=== PATIENT | female | born 1975 | race Caucasian/White ===

== ENCOUNTER → 2023-10-15 16:10 | Outpatient (REF) | payer OTHER, SELFPAY | LOC: RAD 16:10 | PROVIDERS: ATTENDING PHYSICIAN Nurse Practitioner Family | DX: R05.1 Acute cough (principal) | CPT/HCPCS: 71046 ==

== ENCOUNTER 2023-12-22 16:16 | Emergency (ER) | payer OTHER, SELFPAY ==
[2023-12-22 16:33] VITALS: BP 143/73
--- NOTE | 2023-12-22 17:08 | ED.SKININJ ---
HPI-Injury
<Brianna Wong PA-C - Last Filed: 12/23/23 00:22>
General
Chief Complaint: Bite
Source: patient
Exam Limitations: none
Time Seen by Provider: 12/22/23 16:42
Nursing documentation reviewed up to this point in time: agreed with
History of Present Illness-Injury
Is this injury a work related problem?: No
Is pt an associate of [facility]?: No
Initial Injury comments:
Patient is a 48-year-old female presenting for evaluation of right to left third digit. Patient states she was pulling down IV in her yard on Friday evening around 5 PM when she reached at the PIP and felt a sharp pain in her left middle finger.
Patient states that she removed her hand but did not notice any bug, spider, insect, snake, bird/bat. Patient states that over the course of the weekend her finger became bruised and she had some pain. Yesterday when she woke up states that
bruising, swelling and pain in her left finger had greatly improved. Given the unknown nature of what bit her she did follow-up with her primary care today. Her primary care sent her to the emergency department uncertainty of whether or not it may
have been a bat that bit her.
Patient does state that they do have baths in her yard frequently and states that she sees a night.
Patient denies any associated fever, chills.
Review of Systems
<Brianna Wong PA-C - Last Filed: 12/23/23 00:22>
Review of Systems
Allergies reviewed?: Yes
All Other Systems: ROS reviewed and negative except as documented in HPI and ROS
Phy Exam
<Brianna Wong PA-C - Last Filed: 12/23/23 00:22>
Physical Exam
Physical Exam:
Vitals: Patient's vital signs are stable. Afebrile
General: Patient is well appearing, no acute distress
Skin: Well-healing pinpoint shaylee on the left third digit at lateral aspect near PIP joint. No surrounding erythema, edema, ecchymoses. No red streaking.
Head: Normocephalic, atraumatic
Eyes: Sclera nonicteric. EOMs intact. No nystagmus.
Throat: Protecting airway
Neck: Normal ROM, no cervical spine tenderness, no meningismus
Cardiac: Regular rate and rhythm, no murmurs.
Pulm: Normal respiratory effort, no wheezes, rales, rhonchi heard on exam.
Abdomen: No abdominal tenderness.
Extremities: Pinpoint puncture wount to left third digit as described above. No bony tenderness to left hand. Full range of motion in left third digit without pain. Left third digit neurovascularly intact. Great sensation and capillary refill.
Neuro: AAOx3. CN II-XII intact. No focal neurologic deficits.
Psychiatric: Normal affect.
Course
<Brianna Wong PA-C - Last Filed: 12/23/23 00:22>
Orders/Labs/Results
Orders:
Orders
12/22/23 17:40
Rabies Immune Globulin/Pf [HyperRAB] 1,348 unit IM NOW STA
12/22/23 17:45
Rabies Vaccine (Pcec)/Pf [Rabavert Rabies Vacc W-Diluent] 2.5 unit IM .ONCE ONE
Vital Signs
Initial and Last Documented VS:
Initial Vital Signs
Temp Pulse Resp BP Pulse Ox
98.0 F 80 16 143/73 98
12/22/23 16:33 12/22/23 16:33 12/22/23 16:33 12/22/23 16:33 12/22/23 16:33
Last Documented Vital Signs
Temp Pulse Resp BP Pulse Ox
98.0 F 80 16 143/73 98
12/22/23 16:33 12/22/23 16:33 12/22/23 16:33 12/22/23 16:33 12/22/23 16:33
<Sameer Hearn DO - Last Filed: 12/22/23 20:01>
Orders/Labs/Results
Orders:
Orders
12/22/23 17:40
Rabies Immune Globulin/Pf [HyperRAB] 1,348 unit IM NOW STA
12/22/23 17:45
Rabies Vaccine (Pcec)/Pf [Rabavert Rabies Vacc W-Diluent] 2.5 unit IM .ONCE ONE
Vital Signs
Initial and Last Documented VS:
Initial Vital Signs
Temp Pulse Resp BP Pulse Ox
98.0 F 80 16 143/73 98
12/22/23 16:33 12/22/23 16:33 12/22/23 16:33 12/22/23 16:33 12/22/23 16:33
Last Documented Vital Signs
Temp Pulse Resp BP Pulse Ox
98.0 F 80 16 143/73 98
12/22/23 16:33 12/22/23 16:33 12/22/23 16:33 12/22/23 16:33 12/22/23 16:33
<Brianna Wong PA-C - Last Filed: 12/23/23 00:22>
MDM/Problems Addressed
Differential Diagnosis Includes:
Not limited to: Laceration, possible rabies exposure, cellulitis,
MDM/Problems Addressed:
48-year-old female presenting following unknown bite to left third digit occurring 3 days ago. Patient seen by primary care and given unknown source and concern for possible bat bite sent to emergency department for rabies vaccination. Patient
denies any fever, chills. Vital signs are stable on arrival. Physical exam as above. Patient with very tiny pinpoint bite to left lateral third digit near PIP joint. No surrounding erythema, red streaking, edema, ecchymoses. Patient has
excellent range of motion in left third digit. Left hand with great sensation and great capillary refill.
Patient does report that she sees bats in her yard daily. Given uncertainty of bite�will initiate rabies vaccination series. Patient will be given rabies immunoglobulin and first dose of rabies vaccine while in emergency department. She tolerated
injections well. Patient did receive his booster at primary care. No indication for antibiotics at this time. Patient was counseled regarding scheduling of subsequent 3 vaccine doses. She will monitor for any signs of infection and return
promptly. Patient stable for discharge.
Chronic conditions affecting care:
N/A
Acute Exacerbation and/or Progression of Chronic Illness:
N/A
<Brianna Wong PA-C - Last Filed: 12/23/23 00:22>
*Pulse Oximetry
Patient hypoxic: no
*EKG
Interpreted by ED Provider?: NA
*Dryland Farmer Interpretation
Rate: Dryland Farmer- N/A
*Critical Care Note
Total Time (30-74mins, 75-104mins- exclusive of procedures): Not Applicable
ED Attending Note
<Brianna Wong PA-C - Last Filed: 12/23/23 00:22>
-
Portions of this chart may have been created with voice recognition software.� Occasional wrong word or��sound alike� substitutions may have occurred due to the inherent limitations of voice recognition software.
<Sameer Hearn DO - Last Filed: 12/22/23 20:01>
ED Attending Note
Patient seen and examined by attending physician: Yes
I performed a history and physical exam of patient and discussed management with resident, I reviewed resident's note and agree with documented findings and plan of care.: Yes
ED Attending Note:
I have reviewed and agree with history and treatment plan by Brianna Munoz. Exam reveals small possible puncture wound on left third digit. Patient treated for possible rabies exposure. Stable for discharge.
Discharge Plan
Departure
Patient Disposition: Home (Routine Discharge)
Date of Disposition: 12/22/23
Time of Disposition: 17:53
Patient with high blood pressure during this ER visit?: No
Condition: Good
Covid-19: Not Applicable
Discharge Problem:
Rabies, need for prophylactic vaccination against
Instructions: Rabies (DC)
Prescriptions:
New
RabAvert (PF) 2.5 unit suspension for reconstitution
1 ml IM ONCE Qty: 3 0RF
Rx Instructions:
Inject 1mL on 12/25/23, 12/29/23, and 01/05/24
Referrals:
Kiran Harris MD [Family Provider] - As needed
Stand Alone Forms: Rabies Vaccine Post Exp Dosing
Activity Restrictions/Additional Instructions:
RETURN TO THE EMERGENCY DEPARTMENT WITH ANY FEVERS, CHILLS, SIGNIFICANT REDNESS, SWELLING, OR RED STREAKING AROUND INJECTION SITES, OR ANY OTHER CONCERNS
-As discussed�you received the first dose of vaccine today along with the immunoglobulin. You will receive 3 additional doses of the rabies vaccine. These will be performed on 12/24, 12/28, and 01/04. You should contact the infusion center as
listed on your discharge paperwork and make appointments for these additional vaccines. You have been given a printed prescription to bring with you to the infusion center.
-Monitor wound closely and return to the emergency department/primary care with any evidence of a developing infection.
Monitor your symptoms closely return to the emergency department any acute worsening/new symptoms
Interventions
Interventions:
*General Assessment Last Done: 12/22/23 18:21
*Nursing Disposition Last Done: 12/22/23 18:21
ED-Skin Assessment Last Done: 12/22/23 18:21
Discharge Date and Time
Discharge Date/Time: 12/22/23 18:22
Print Language: BERMUDIAN
[2023-12-22] MEDS: RABAVERT RABIES VACC W-DILUENT 2.5 UNIT IM (17:56)
[2023-12-22] MEDS: HyperRAB 1348 UNIT IM (17:57)
== END 2023-12-22 18:22 | disposition home or self-care (01) ==
LOC: EMR 16:16
PROVIDERS: EMERGENCY PHYSICIAN Emergency Medicine; FAMILY PHYSICIAN Family Medicine
DX: Z20.3 Contact with and (suspected) exposure to rabies (principal); Z23 Encounter for immunization; Z29.14 Encounter for prophylactic rabies immune globulin; S61.233A Puncture wound without foreign body of left middle finger without damage to nail, initial encounter; M79.645 Pain in left finger(s); M79.89 Other specified soft tissue disorders; X58.XXXA Exposure to other specified factors, initial encounter; Y93.H2 Activity, gardening and landscaping; Y92.007 Garden or yard of unspecified non-institutional (private) residence as the place of occurrence of the external cause
CPT/HCPCS: 99284; 96372; 90471; 90375; 90675

== ENCOUNTER 2024-01-05 14:21 | Outpatient (RCR) | payer OTHER, SELFPAY ==
[2023-12-25 14:12] VITALS: BP 114/64
[2023-12-25] MEDS: RABAVERT RABIES VACC W-DILUENT 2.5 UNIT IM (14:17)
[2023-12-29 13:58] VITALS: BP 116/60
[2023-12-29] MEDS: RABAVERT RABIES VACC W-DILUENT 2.5 UNIT IM (14:03)
[2024-01-05 14:38] VITALS: BP 124/78
[2024-01-05] MEDS: RABAVERT RABIES VACC W-DILUENT 2.5 UNIT IM (14:41)
== END 2024-01-05 15:03 | disposition home or self-care (01) ==
LOC: OID 14:21
PROVIDERS: ATTENDING PHYSICIAN Emergency Medicine; FAMILY PHYSICIAN Family Medicine
DX: Z20.3 Contact with and (suspected) exposure to rabies (principal); Z23 Encounter for immunization
CPT/HCPCS: 90471; 90675

== ENCOUNTER → 2024-02-10 11:58 | Outpatient (REF) | payer OTHER, SELFPAY | LOC: WDC 11:58 | PROVIDERS: ATTENDING PHYSICIAN Obstetrics & Gynecology; FAMILY PHYSICIAN Family Medicine | DX: Z12.31 Encounter for screening mammogram for malignant neoplasm of breast (principal) | CPT/HCPCS: 77063; 77067 ==